=== PATIENT | female | born 1990 | race Caucasian/White ===

== ENCOUNTER 2016-07-15 15:09 | Emergency (ER) | payer MEDICAID ==
[~2016-07-15] VITALS: Ht 157.5 cm; Wt 45.6 kg
[~2016-07-15 15:09] MED LIST: ARIP30TA PO; FLUR30CA3 PO; HYDR50TA13 PO
[2016-07-15 15:58] LABS: ASPARTATE AMINO TRANSFERASE 19 U/L (15-37); BLOOD UREA NITROGEN 9 mg/dL (7-18)
[2016-07-15 16:12] LABS: PATH.CAST-FLAG NOT PRESENT; SPERM-FLAG NOT PRESENT; SRC-FLAG NOT PRESENT; XTAL-FLAG NOT PRESENT; YLC-FLAG NOT PRESENT
[2016-07-15 17:51] VITALS: BP 111/58
== END 2016-07-15 17:54 | disposition home or self-care (01) ==
LOC: ED 16:15
DX: R42 Dizziness and giddiness (principal); G89.29 Other chronic pain; D64.9 Anemia, unspecified
CPT/HCPCS: 36415; 80053; 81001; 83735; 84439; 84443; 84703; 85025; 87086; 93005

== ENCOUNTER 2016-10-11 00:01 | Emergency (ER) | payer MEDICAID ==
[~2016-10-11] VITALS: Ht 157.5 cm; Wt 43.7 kg
[2016-10-11 01:10] VITALS: BP 116/78
== END 2016-10-11 01:43 | disposition left against medical advice (07) ==
LOC: ED 01:02
DX: N89.8 Other specified noninflammatory disorders of vagina (principal)
CPT/HCPCS: 99281

== ENCOUNTER 2017-06-17 10:05 | Emergency (ER) | payer MEDICAID ==
[~2017-06-17] VITALS: Ht 157.5 cm; Wt 47.0 kg
[~2017-06-17 10:05] MED LIST changes: -ARIP30TA PO; +ARIP30TA4 PO
[2017-06-17 10:16] VITALS: BP 114/78
[2017-06-17] MEDS ORDERED: ACETAMINOPHEN 325 MG TABLET ONE (10:41)
[2017-06-17] MEDS ORDERED: ONDANSETRON ODT 4 MG ONE (10:41)
[2017-06-17] MEDS ORDERED: ONDANSETRON ODT 4 MG PO ONE (11:00)
[2017-06-17] MEDS ORDERED: ACETAMINOPHEN 325 MG TABLET PO ONE (11:00)
== END 2017-06-17 12:03 | disposition home or self-care (01) ==
LOC: ED 11:49
DX: O26.891 Other specified pregnancy related conditions, first trimester (principal); O99.511 Diseases of the respiratory system complicating pregnancy, first trimester; J02.8 Acute pharyngitis due to other specified organisms; Z3A.01 Less than 8 weeks gestation of pregnancy
CPT/HCPCS: 87081; 87880; 99284; Q0162

== ENCOUNTER 2017-11-24 19:12 | Emergency (ER) | payer MEDICAID ==
[~2017-11-24] VITALS: Ht 157.5 cm; Wt 51.3 kg
[2017-11-24 21:17] VITALS: BP 112/69
== END 2017-11-24 21:20 | disposition home or self-care (01) ==
LOC: ED 20:46
DX: O26.899 Other specified pregnancy related conditions, unspecified trimester (principal); M25.562 Pain in left knee; Z3A.00 Weeks of gestation of pregnancy not specified
CPT/HCPCS: 99284

== ENCOUNTER 2017-12-24 15:17 | Inpatient (IN) | payer MEDICAID ==
[~2017-12-24] VITALS: Ht 160 cm; Wt 54.5 kg
[2017-12-24] MEDS ORDERED: OXYTOCIN 30U/ 0.9% NaCL 500ML 500 ML IV ONE (15:59)
[2017-12-24] MEDS ORDERED: BETAMETHASONE 6 MG/ML, 5ML IM ONE (16:09)
[2017-12-24] MEDS ORDERED: MAGNESIUM SULF. PMX 20GM/500ML 500 ML IV ONE (16:10)
[2017-12-24] MEDS: BETAMETHASONE 6 MG/ML, 5ML IM SCH (16:15)
[2017-12-24] MEDS: LACTATED RINGERS 1,000 ML IV PRN (16:16)
[2017-12-24] MEDS ORDERED: PENICILLIN GK 5,000,000 UNITS in SODIUM CHLORIDE 0.9% 100 ML IVPB ONE (16:30)
[2017-12-24] MEDS ORDERED: MAGNESIUM SULFATE PMX 4GM/100M 100 ML IVPB ONE (16:30)
[2017-12-24] MEDS ORDERED: CALCIUM GLUCONATE 4.6 MEQ/10 ML IV PRN (16:30)
[2017-12-24] MEDS: MAGNESIUM SULF. PMX 20GM/500ML 500 ML IV SCH (16:44)
[2017-12-24 16:48] LABS: CULTURE INDICATED? YES; MICROSCOPIC INDICATED
[2017-12-24 17:04] VITALS: BP 113/80
[2017-12-24 17:19] LABS: MEAN CORPUSCULAR HEMOGLOBIN 24.9 pg (27.0-34.8); MEAN CORPUSCULAR HGB CONC 32.6 g/dL (32.4-35.8); MEAN CORPUSCULAR VOLUME 76.6 fL (80-100)
[2017-12-24 17:27] LABS: MEAN PLATELET VOLUME 11.6 fL (7.4-10.4)
[2017-12-24 17:28] LABS: PLATELET COUNT 114 x10^3/uL (130-400)
[2017-12-24 17:30] LABS: MD MORPH REVIEW ONLY
[2017-12-24 17:31] LABS: BASOPHILS # (AUTO) 0.03 x10^3/uL (0-0.1); BASOPHILS % (AUTO) 1 % (0-1); EOSINOPHILS # (AUTO) 0.12 x10^3/uL (0-0.4); EOSINOPHILS % (AUTO) 2 % (1-7); LYMPHOCYTES # (AUTO) 1.05 x10^3/uL (1-3.4); LYMPHOCYTES % (AUTO) 15 % (22-44); MONOCYTES # (AUTO) 0.38 x10^3/uL (0.2-0.8); MONOCYTES % (AUTO) 6 % (2-9); NEUTROPHILS # (AUTO) 5.34 x10^3/uL (1.8-6.8); NEUTROPHILS % (AUTO) 77 % (42-75)
[2017-12-24 17:32] LABS: <PLATELET ESTIMATE> DECREASED; ANISOCYTOSIS 1+; GIANT PLATELETS 1+; LARGE PLATELETS 2+; MICROCYTOSIS 1+; OVALOCYTES 1+; POLYCHROMASIA 1+
[2017-12-24] MEDS: ACYCLOVIR 200 MG CAPSULE PO SCH (20:55)
[2017-12-24] MEDS: PENICILLIN GK 2,500,000 UNITS in DEXTROSE 5% 100 ML IVPB SCH (20:56)
[2017-12-24] MEDS ORDERED: ACETAMINOPHEN 325 MG TABLET ONE (21:09)
[2017-12-24] MEDS: ACETAMINOPHEN 325 MG TABLET PO PRN (21:13)
[2017-12-25] MEDS ORDERED: ZOLPIDEM 5MG TABLET ONE ×2 (00:39→20:57)
[2017-12-25] MEDS: ZOLPIDEM 5MG TABLET PO SCH ×2 (00:44→21:00)
[2017-12-25] MEDS ORDERED: MAGNESIUM SULF. PMX 20GM/500ML 500 ML IV ONE ×3 (00:47→22:53)
[2017-12-25] MEDS: PENICILLIN GK 2,500,000 UNITS in DEXTROSE 5% 100 ML IVPB SCH ×6 (00:51→21:00)
[2017-12-25] MEDS: MAGNESIUM SULF. PMX 20GM/500ML 500 ML IV SCH ×3 (00:51→22:57)
[2017-12-25] MEDS ORDERED: CALCIUM CARBONATE 500 MG TAB.CHEW ONE ×2 (01:45→21:03)
[2017-12-25] MEDS: CALCIUM CARBONATE 500 MG TAB.CHEW PO PRN ×2 (01:46→21:04)
[2017-12-25] MEDS ORDERED: ALUMINUM/MAG/SIMETHICONE 30 ML UDC PO PRN (02:00)
[2017-12-25] MEDS ORDERED: ACYCLOVIR 200 MG CAPSULE ONE ×3 (06:25→20:58)
[2017-12-25] MEDS: ACYCLOVIR 200 MG CAPSULE PO SCH ×3 (06:28→21:00)
[2017-12-25 07:44] VITALS: BP 94/54
[2017-12-25] MEDS: BETAMETHASONE 6 MG/ML, 5ML IM SCH (16:00)
[2017-12-25] MEDS: LACTATED RINGERS 1,000 ML IV PRN (16:00)
[2017-12-25] MEDS ORDERED: ACETAMINOPHEN 325 MG TABLET ONE (20:33)
[2017-12-25] MEDS: ACETAMINOPHEN 325 MG TABLET PO PRN (20:59)
[2017-12-26] MEDS: PENICILLIN GK 2,500,000 UNITS in DEXTROSE 5% 100 ML IVPB SCH ×3 (01:16→09:06)
[2017-12-26 07:20] VITALS: BP 110/68
[2017-12-26] MEDS ORDERED: DOCUSATE 100 MG CAPSULE ONE ×2 (07:25→21:25)
[2017-12-26] MEDS: DOCUSATE 100 MG CAPSULE PO SCH ×2 (07:30→21:29)
[2017-12-26] MEDS: LACTATED RINGERS 1,000 ML IV PRN (07:30)
[2017-12-26] MEDS ORDERED: ACYCLOVIR 200 MG CAPSULE ONE ×2 (18:41→21:25)
[2017-12-26] MEDS: ACYCLOVIR 200 MG CAPSULE PO SCH ×2 (18:42→23:59)
[2017-12-26] MEDS ORDERED: ZOLPIDEM 5MG TABLET ONE (21:24)
[2017-12-27] MEDS: ZOLPIDEM 5MG TABLET PO SCH
[2017-12-27] MEDS ORDERED: PREN1TAB60 PO (08:08)
[2017-12-27] MEDS ORDERED: ESCI10TA PO (08:13)
[2017-12-27] MEDS ORDERED: CARI3CAP PO (08:13)
== END 2017-12-27 08:35 | disposition home or self-care (01) | DRG 833 ==
LOC: LDIP 15:17
PROVIDERS: ADMIT Student in an Organized Health Care Education/Training Program; ATTEND Student in an Organized Health Care Education/Training Program
DX: O47.03 False labor before 37 completed weeks of gestation, third trimester (principal); O99.343 Other mental disorders complicating pregnancy, third trimester; F31.9 Bipolar disorder, unspecified; Z3A.33 33 weeks gestation of pregnancy; Z90.89 Acquired absence of other organs; Z91.040 Latex allergy status
CPT/HCPCS: 36415; 76815; 81001; 83735; 85025; 86850; 86900; 87081; 87086; G0378; J0702; J2540; J3475; J7120

== ENCOUNTER 2018-01-08 00:06 | Outpatient (CLI) | payer MEDICAID ==
[~2018-01-08] VITALS: Ht 157.5 cm; Wt 55.0 kg
[~2018-01-08 00:06] MED LIST changes: +CARI3CAP PO; +ESCI10TA PO; +PREN1TAB60 PO
[2018-01-08 00:22] VITALS: BP 119/82
[2018-01-08 01:01] LABS: MICROSCOPIC INDICATED
== END 2018-01-08 01:20 | disposition home or self-care (01) ==
LOC: LDOP 00:06
PROVIDERS: ATTEND Student in an Organized Health Care Education/Training Program
DX: O26.893 Other specified pregnancy related conditions, third trimester (principal); R10.9 Unspecified abdominal pain; Z3A.35 35 weeks gestation of pregnancy
CPT/HCPCS: 59025; 81001; 99211; G0463

== ENCOUNTER 2018-01-11 03:30 | Inpatient (IN) | payer MEDICAID ==
[~2018-01-11] VITALS: Ht 157.5 cm; Wt 56.0 kg
[2018-01-11] MEDS ORDERED: D5%-LACTATED RINGERS 1,000 ML IV SCH (03:59)
[2018-01-11] MEDS ORDERED: LACTATED RINGERS 1,000 ML IV SCH ×2 (03:59→04:00)
[2018-01-11] MEDS ORDERED: METOCLOPRAMIDE 5 MG/ML, 2ML IVPush PRN (04:00)
[2018-01-11] MEDS ORDERED: ALUMINUM/MAG/SIMETHICONE 30 ML UDC PO PRN (04:00)
[2018-01-11] MEDS ORDERED: SODIUM CITRATE/CITRIC ACID 30 ML UDC PO PRN (04:00)
[2018-01-11] MEDS ORDERED: ONDANSETRON 2MG/ML, 2ML IVPush PRN (04:00)
[2018-01-11] MEDS ORDERED: FENTANYL PF 100 MCG/2ML IVPush PRN (04:00)
[2018-01-11] MEDS ORDERED: FENTANYL PF 100 MCG/2ML IV PRN (04:00)
[2018-01-11] MEDS ORDERED: TERBUTALINE 1 MG/ML, 1ML SQ PRN (04:00)
[2018-01-11] MEDS ORDERED: TERBUTALINE 1 MG/ML, 1ML IVPush PRN ×2 (04:00)
[2018-01-11] MEDS ORDERED: CALCIUM CARBONATE 500 MG TAB.CHEW PO PRN (04:00)
[2018-01-11] MEDS ORDERED: FENTANYL PF 100 MCG/2ML ONE (04:03)
[2018-01-11] MEDS ORDERED: OXYTOCIN 30U/ 0.9% NaCL 500ML 500 ML ONE ×2 (04:03→05:57)
[2018-01-11] MEDS ORDERED: NEWBORN KIT ONE (04:03)
[2018-01-11 04:20] LABS: BASOPHILS % (AUTO) 1 % (0-1); EOSINOPHILS # (AUTO) 0.06 x10^3/uL (0-0.4); EOSINOPHILS % (AUTO) 1 % (1-7); LYMPHOCYTES # (AUTO) 2.16 x10^3/uL (1-3.4); LYMPHOCYTES % (AUTO) 17 % (22-44); MD NO; MEAN CORPUSCULAR HEMOGLOBIN 24.5 pg (27.0-34.8); MEAN CORPUSCULAR HGB CONC 32.2 g/dL (32.4-35.8); MEAN CORPUSCULAR VOLUME 75.9 fL (80-100); MEAN PLATELET VOLUME 9.6 fL (7.4-10.4); MONOCYTES % (AUTO) 5 % (2-9); NEUTROPHILS # (AUTO) 9.52 x10^3/uL (1.8-6.8); NEUTROPHILS % (AUTO) 77 % (42-75); PLATELET COUNT 125 x10^3/uL (130-400); RED BLOOD COUNT 4.71 x10^6/uL (3.82-5.3); RED CELL DISTRIBUTION WIDTH 15.1 % (9.6-15.2)
[2018-01-11] MEDS ORDERED: IBUPROFEN 600 MG TABLET ONE (05:26)
[2018-01-11] MEDS ORDERED: OXYcodone/APAP 5/325MG TABLET ONE (05:26)
[2018-01-11] MEDS ORDERED: OXYTOCIN 30U/ 0.9% NaCL 500ML 500 ML IV SCH (05:29)
[2018-01-11] MEDS ORDERED: ONDANSETRON 2MG/ML, 2ML IV PRN (05:30)
[2018-01-11] MEDS ORDERED: DOCUSATE 100 MG CAPSULE PO PRN (05:30)
[2018-01-11] MEDS ORDERED: OXYcodone/APAP 5/325MG TABLET PO PRN (05:30)
[2018-01-11] MEDS: IBUPROFEN 600 MG TABLET PO PRN ×2 (05:30→19:22)
[2018-01-11] MEDS ORDERED: MISOPROSTOL 200 MCG TABLET PR PRN (05:30)
[2018-01-11 08:00] VITALS: BP 118/76
[2018-01-11] MEDS ORDERED: PRENATAL VIT/IRON/FA 1 EACH TABLET PO SCH (09:00)
[2018-01-11] MEDS ORDERED: ACYCLOVIR 200 MG CAPSULE HOMEMEDPO SCH (09:00)
[2018-01-11 12:00] VITALS: BP 120/78
[2018-01-11 13:18] LABS: BASOPHILS # (AUTO) 0.01 x10^3/uL (0-0.1); BASOPHILS % (AUTO) 0 % (0-1); EOSINOPHILS # (AUTO) 0.01 x10^3/uL (0-0.4); EOSINOPHILS % (AUTO) 0 % (1-7); LYMPHOCYTES # (AUTO) 1.15 x10^3/uL (1-3.4); LYMPHOCYTES % (AUTO) 10 % (22-44); MD MORPH REVIEW ONLY; MEAN CORPUSCULAR HEMOGLOBIN 24.9 pg (27.0-34.8); MEAN CORPUSCULAR VOLUME 75.5 fL (80-100); MEAN PLATELET VOLUME 11.6 fL (7.4-10.4); MONOCYTES % (AUTO) 4 % (2-9); NEUTROPHILS % (AUTO) 86 % (42-75); PLATELET COUNT 111 x10^3/uL (130-400); RED BLOOD COUNT 3.72 x10^6/uL (3.82-5.3); RED CELL DISTRIBUTION WIDTH 15.1 % (9.6-15.2)
[2018-01-11 13:19] LABS: <PLATELET ESTIMATE> DECREASED; ANISOCYTOSIS 1+; MICROCYTOSIS 1+; POLYCHROMASIA 1+
[2018-01-11 13:20] LABS: LARGE PLATELETS 2+
[2018-01-11 18:00] VITALS: BP 112/74
[2018-01-11] MEDS ORDERED: IBUP-1222 PO (19:00)
[2018-01-11] MEDS ORDERED: FERR-51 PO (19:04)
[2018-01-11 19:20] VITALS: BP 126/86
[2018-01-11] MEDS ORDERED: ESCITALOPRAM PO/NG SCH (21:00)
== END 2018-01-11 19:25 | disposition home or self-care (01) | DRG 807 ==
LOC: LDOP 03:30 → LDIP 04:00 → 2NW 06:51
PROVIDERS: ADMIT Student in an Organized Health Care Education/Training Program; ATTEND Student in an Organized Health Care Education/Training Program
PROC: 10907ZC Drainage of Amniotic Fluid, Therapeutic from Products of Conception, Via Natural or Artificial Opening (ICD-10-PCS; principal; 2018-01-11)
PROC: 10E0XZZ Delivery of Products of Conception, External Approach (ICD-10-PCS; 2018-01-11)
DX: O60.14X0 Preterm labor third trimester with preterm delivery third trimester, not applicable or unspecified (principal); Z37.0 Single live birth; O99.344 Other mental disorders complicating childbirth; O71.89 Other specified obstetric trauma; Z3A.35 35 weeks gestation of pregnancy; F31.9 Bipolar disorder, unspecified
CPT/HCPCS: 36415; 85025; 86850; 86900; 99285; G0378; J3010; J2590; J7120